=== PATIENT | male | born 2000 | race African-American/Black ===

== ENCOUNTER → 2024-04-18 11:41 | Outpatient (REF) | payer OTHER, SELFPAY | LOC: RAD 11:41 | PROVIDERS: ATTENDING PHYSICIAN Nurse Practitioner Family | DX: R07.81 Pleurodynia (principal) | CPT/HCPCS: 71111 ==

== ENCOUNTER 2024-06-26 21:32 | Emergency (ER) | payer OTHER, SELFPAY ==
[2024-06-26 21:37] VITALS: BP 132/90
[2024-06-26 21:56] LABS: % Basophils 0.4 % (0-2); % Eosinophils 12.8 % (0-6); % Immature Granulocytes 0.2 % (0-0.5); % Lymphocytes 25.4 % (20.5-51.1); % Monocytes 9.4 % (1.7-9.3); % Neutrophils 51.8 % (42.2-75.2); Absolute Basophils 0.1 10^3/uL (0-0.2); Absolute Eosinophils 1.6 10^3/uL (0-0.7); Absolute Lymphocytes 3.2 10^3/uL (1.2-3.4); Absolute Monocytes 1.2 10^3/uL (0.1-0.6); Absolute Neutrophils 6.6 10^3/uL (1.4-6.5); Hematocrit 42.1 % (39.0-52.0); Hemoglobin 14.5 g/dL (13.0-18.0); Mean Corp Hgb Conc. 34.4 g/dL (33.0-37.0); Mean Corpuscular Hgb 29.5 pg (27.0-31.0); Mean Corpuscular Volume 85.6 fL (80.0-94.0); Mean Platelet Volume 8.5 fL (7.4-10.4); Nucleated Red Blood Cells % 0 % (-); Platelet Count 416 10^3/uL (130-400); Red Blood Cell Count 4.92 10^6/uL (4.70-6.10); Red Cell Dist. Width 13.7 % (11.5-14.5); White Blood Cell Count 12.7 10^3/uL (4.8-10.8)
[2024-06-26 22:30] LABS: ALT (SGPT) 251 U/L (0-50); AST (SGOT) 130 U/L (17-59); Albumin 4.3 g/dl (3.5-5.0); Alkaline Phosphatase 219 U/L (38-126); Blood Urea Nitrogen 9 mg/dl (9-20); Calcium 9.5 mg/dl (8.4-10.2); Carbon Dioxide 29 mmol/L (22-30); Chloride 100 mmol/L (98-107); Glucose 136 mg/dl (70-99); Lipase 98 U/L (23-300); Potassium 4.1 mmol/L (3.5-5.1); Sodium 139 mmol/L (135-145); Total Protein 7.5 g/dl (6.3-8.2); eGFR > 60.00
[2024-06-27 00:43] VITALS: BP 136/85; BMI 21.2
--- NOTE | 2024-06-27 00:56 | ED.GENMED ---
History of Present Illness
General
Chief Complaint: Abdominal Pain
Source: patient
Exam Limitations: none
Time Seen by Provider: 06/27/24 00:35
Nursing documentation reviewed up to this point in time: agreed with
History of Present Illness
History of Present Illness:
Patient is a 24-year-old male who presents to the emergency department complaining of abdominal pain with nausea vomiting especially after eating for the past 2 days. Patient denies fever or chills. Patient denies any upper respiratory symptoms.
Patient denies any symptoms. Patient denies any diarrhea, constipation, melena or hematochezia. Patient denies any previous history of similar episodes. Patient does not drink. Patient has no past medical history and does not take
medications. Patient has no surgical history. Patient denies any recent illnesses or injuries.
Past History
Past History
ED Past Medical History: None
ED Past Surgical History: None
Social History
Tobacco: Non-smoker
Alcohol: None
Drug: None
Review of Systems
Review of Systems
All Other Systems: ROS reviewed and negative except as documented in HPI and ROS
Constitutional: Reports no symptoms
EENT: Reports no symptoms
Respiratory: Reports no symptoms
Cardiac: Reports no symptoms
ABD/GI: Reports abdominal pain, nausea and vomiting; Denies diarrhea, constipated, bloody stools, black stools or anorexia
: Reports no symptoms
Musculoskeletal: Reports no symptoms; Denies back pain
Skin: Reports no symptoms
Neurological: Reports no symptoms
Hematologic/Lymphatic: Reports no symptoms
Phy Exam
Physical Exam
Physical Exam:
Physical Exam
General: No apparent distress, alert and appropriate, well nourished, well hydrated
HENT: Normocephalic, supple with no lymphadenopathy
Eyes: Clear sclera, conjuctiva without injection
Heart: Regular rhythm and rate. No S3, S4. No murmur.
Lungs: No respiratory distress, no stridor, lung sounds clear and equal bilaterally, chest wall symmetrical and nontender
Abdomen: Soft, minimal upper abdominal tenderness without guarding or rebound, no organomegaly, no CVA tenderness, BS good
Neuro: Alert and oriented x 3, CN II - XII intact, no motor focality, no cerebellar dysfunction
Skin: no rash
Psychiatric: well kept. interactive and cooperative
Extremities: No edema, cyanosis, tenderness, Good and equal peripheral pulses.
Course
Orders/Labs/Results
Orders:
Orders
06/26/24 21:48
Complete Blood Count/With Diff Urgent
Comprehensive Metabolic Panel Urgent
Lipase Urgent
06/27/24 00:55
Ketorolac [Toradol] 30 mg IM NOW STA
06/27/24 00:56
US Abdomen Complete/Upper Urgent
Comment:
Reason For Exam: Abdominal pain with elevated liver enzymes
Abnormal Lab Results
06/26/24
21:48
WBC 12.7 H 10^3/uL
(4.8-10.8)
Plt Count 416 H 10^3/uL
(130-400)
Absolute Neuts (auto) 6.6 H 10^3/uL
(1.4-6.5)
Absolute Monos (auto) 1.2 H 10^3/uL
(0.1-0.6)
Absolute Eos (auto) 1.6 H 10^3/uL
(0-0.7)
Monocytes % 9.4 H %
(1.7-9.3)
Eosinophils % 12.8 H %
(0-6)
Glucose 136 H mg/dl
(70-99)
AST 130 H U/L
(17-59)
ALT 251 H U/L
(0-50)
Alkaline Phosphatase 219 H U/L
(38-126)
06/26/24 21:48
06/26/24 21:48
Vital Signs
Initial and Last Documented VS:
Initial Vital Signs
Temp Pulse Resp BP Pulse Ox
98.3 F 89 19 132/90 96
06/26/24 21:37 06/26/24 21:37 06/26/24 21:37 06/26/24 21:37 06/26/24 21:37
Last Documented Vital Signs
Temp Pulse Resp BP Pulse Ox
98.3 F 81 16 136/85 100
06/26/24 21:37 06/27/24 00:43 06/27/24 00:43 06/27/24 00:43 06/27/24 00:43
*Radiology
Radiology exam reviewed: radiology read reviewed (us negative)
*Pulse Oximetry
Patient hypoxic: no
*EKG
Interpreted by ED Provider?: NA
*[employer] [address] [employer] Interpretation
Rate: [employer]- N/A
*Critical Care Note
Total Time (30-74mins, 75-104mins- exclusive of procedures): Not Applicable
Update Note
Update Note:
Patient's liver enzymes are elevated. Gallbladder is normal on ultrasound. Patient does not have risk factors for hepatitis B or C. However we will check for both a, B and C. Patiently treated for symptoms and to follow-up with his family
doctor. No travel history, no IVDA, blood transfusions
ED Attending Note
-
Portions of this chart may have been created with voice recognition software.� Occasional wrong word or��sound alike� substitutions may have occurred due to the inherent limitations of voice recognition software.
Discharge Plan
Departure
Patient Disposition: Home (Routine Discharge)
Date of Disposition: 06/27/24
Time of Disposition: 03:13
Patient with high blood pressure during this ER visit?: Yes
Condition: Fair
Covid-19: Not Applicable
Discharge Problem:
Abdominal pain, Elevated LFTs
Instructions: [place] Diet, Nausea and Vomiting, Adult (DC), Abdominal Pain, BLOOD PRESSURE
Prescriptions:
New
ondansetron 8 mg tablet,disintegrating
8 mg PO TID PRN (Reason: nausea and vomiting) Qty: 20 0RF
tramadol 100 mg tablet
100 mg PO Q6H PRN (Reason: pain) Qty: 10 0RF
Referrals:
UNKNOWN - PT DOES,NOT KNOW [Family Provider] -
Activity Restrictions/Additional Instructions:
Follow-up with your family physician in 2 to 3 days. We will call you if any lab test is abnormal. Any increasing pain, vomiting, fever or chills please return immediately.
Interventions
Interventions:
*Risk Screen - Suicide Last Done: 06/26/24 21:39
*General Assessment Last Done: 06/26/24 21:39
*Neglect/Abuse Screening Last Done: 06/26/24 21:39
ED- Fall Risk Assessment Last Done: 06/27/24 00:44
*ED COVID-19 Vaccine History Last Done: 06/26/24 21:39
LU-Cxjwct-Iizuanfnym Assessment Last Done: 06/27/24 00:44
Discharge Date and Time
Print Language: SWISS
[2024-06-27] MEDS: TORADOL 30 MG IM (01:04)
[2024-06-27 03:52] VITALS: BP 107/42
[2024-06-27 05:10] LABS: Hepatitis B Surface Antigen Negative (Negative)
[2024-06-27 05:27] LABS: Hepatitis B Surface Antibody Negative; Hepatitis C Antibody Negative (Negative)
[2024-06-28 18:51] LABS: Hepatitis B Core Ab, Total Negative (Negative)
[2024-06-28 18:52] LABS: Hepatitis A Antibody, Total Positive (Negative)
[2024-06-28 19:55] LABS: Hepatitis A IgM Antibody Negative (Negative)
== END 2024-06-27 03:57 | disposition home or self-care (01) ==
LOC: EMR 21:32
PROVIDERS: EMERGENCY PHYSICIAN Emergency Medicine
DX: R10.9 Unspecified abdominal pain (principal); R79.89 Other specified abnormal findings of blood chemistry
CPT/HCPCS: 99284; 96374; 76700; 80053; 83690; 85025; 86704; 86705; 86706; 86708; 86709; 86803; 87340